=== PATIENT | female | born 1965 | race Caucasian/White ===

== ENCOUNTER 2019-11-10 12:05 | Emergency (ER) | payer OTHER ==
[~2019-11-10] VITALS: Ht 165.1 cm; Wt 65.0 kg
[2019-11-10] MEDS ORDERED: PROCHLORPERAZINE 10 MG/2 ML VIAL. IV ONE (12:45)
[2019-11-10] MEDS ORDERED: IV NORMAL SALINE 1000ML BAG 1,000 ML IV ONE (12:45)
[2019-11-10] MEDS ORDERED: diphenhydrAMINE 50 MG/ML VIAL IVP ONE (12:45)
[2019-11-10] MEDS ORDERED: methylPREDNISolone SOD SUCC PF 125 MG/2 ML VIAL. IV ONE (12:45)
[2019-11-10 12:49] LABS: BILIRUBIN,URINE NEGATIVE (NEG); CLARITY,URINE CLEAR; COLOR,URINE YELLOW; NITRITE,URINE NEGATIVE (NEG); PH,URINE 6.5 (<5.0-8.0); PROTEIN,URINE NEGATIVE (NEG-TRACE); UROBILINOGEN,URINE 0.2 mg/dL (0.2 mg/dL)
[2019-11-10 12:55] LABS: SQUAMOUS EPITHELIAL CELL,UR FEW /LPF
[2019-11-10 12:56] LABS: BACTERIA,URINE 0 /HPF (0-FEW); WBC,URINE 0 /HPF (0-4)
[2019-11-10 12:59] LABS: BARBITURATES NEG (NEG); BENZODIAZEPINES NEG (NEG); CANNABINOIDS NEG (NEG); COCAINE NEG (NEG); METHADONE NEG (NEG); OPIATES NEG (NEG); PHENCYCLIDINE NEG (NEG)
[2019-11-10 13:02] LABS: AMPHETAMINE/METHAMPHETAMINE NEG (NEG)
--- NOTE | 2019-11-10 13:11 | PHYS DOC ---
General Adult EDM: Chief Complaint: HEADACHE HPI: HPI: Patient is a 54 year old female patient who presents to the ED today complaining of 8 out of 10 throbbing posterior headache radiating to the front that began 8 days ago and has been going on intermittently since then. Patient states she was seen by the PCP who thought she had shingles. She states she does not have any rash anywhere. She states she was also given prescription for acyclovir which she is still taking. Patient denies any fever, denies vomiting but reports nausea. Denies any vision changes. Denies this being the worst headache in her life. Review of Systems: Review of Systems: Constitutional: Denies fever or chills. [] Eyes: Denies change in visual acuity. [] HENT: Denies nasal congestion or sore throat. [] Respiratory: Denies cough or shortness of breath. [] Cardiovascular: Denies chest pain or edema. [] GI: Reports nausea. Denies abdominal pain, vomiting, bloody stools or diarrhea. [] : Denies dysuria. [] Musculoskeletal: Denies back pain or joint pain. [] Integument: Denies rash. [] Neurologic: Reports headache, denies focal weakness or sensory changes. [] Psychiatric: Denies depression or anxiety. [] Heart Score: Risk Factors: Risk Factors: DM, Current or recent (<one month) smoker, HTN, HLP, family history of CAD, obesity. Risk Scores: Score 0 - 3: 2.5% MACE over next 6 weeks - Discharge Home Score 4 - 6: 20.3% MACE over next 6 weeks - Admit for Clinical Observation Score 7 - 10: 72.7% MACE over next 6 weeks - Early Invasive Strategies Current Medications: Current Medications Medications (Trade) Dose Ordered Sig/Sylvain Start Time Stop Time Status Last Admin Dose Admin Diphenhydramine HCl (Benadryl) 25 mg 1X ONCE 11/10/19 12:45 11/10/19 12:49 DC Methylprednisolone Sodium Succinate (SOLU-Medrol 125MG VIAL) 125 mg 1X ONCE 11/10/19 12:45 11/10/19 12:49 DC Prochlorperazine Edisylate (Compazine) 10 mg 1X ONCE 11/10/19 12:45 11/10/19 12:49 DC Sodium Chloride 1,000 ml @ 1,000 mls/hr 1X ONCE 11/10/19 12:45 11/10/19 13:44 Allergies: Allergies: Allergies Coded Allergies Type Severity Reaction Last Updated Verified Penicillins Allergy Unknown Rash 11/10/19 Yes Sulfa (Sulfonamide Antibiotics) Allergy Unknown Rash 11/10/19 Yes codeine Allergy Unknown Nausea 11/10/19 Yes Physical Exam: PE: Constitutional: Well developed, well nourished, no acute distress, non-toxic appearance. [] HENT: Normocephalic, atraumatic, bilateral external ears normal, oropharynx moist, no oral exudates, nose normal. [] Eyes: PERRLA, EOMI, conjunctiva normal, no discharge. [] Neck: Normal range of motion, no tenderness, supple, no stridor. [] Cardiovascular:Heart rate regular rhythm, no murmur [] Lungs & Thorax: Bilateral breath sounds clear to auscultation [] Abdomen: Bowel sounds normal, soft, no tenderness, no masses, no pulsatile masses. [] Skin: Warm, dry, no erythema, no rash. [] Back: No tenderness, no CVA tenderness. [] Extremities: No tenderness, no cyanosis, no clubbing, ROM intact, no edema. [] Neurologic: Alert and oriented X 3, normal motor function, normal sensory function, no focal deficits noted. Cranial nerves II through XII intact Psychologic: Flat affect Current Patient Data: Labs: Laboratory Tests Test 11/10/19 12:17 Urine Color Yellow Urine Clarity Clear Urine pH 6.5 (<5.0-8.0) Urine Specific [place] <=1.005 (1.000-1.030) Urine Protein Negative mg/dL (NEG-TRACE) Urine Glucose (UA) Negative mg/dL (NEG) Urine Ketones (Stick) Negative mg/dL (NEG) Urine Blood Trace (NEG) Urine Nitrite Negative (NEG) Urine Bilirubin Negative (NEG) Urine Urobilinogen Dipstick 0.2 mg/dL (0.2 mg/dL) Urine Leukocyte Esterase Negative (NEG) Urine RBC 3-5 /HPF (0-2) Urine WBC 0 /HPF (0-4) Urine Squamous Epithelial Cells Few /LPF Urine Bacteria 0 /HPF (0-FEW) Urine Opiates Screen Neg (NEG) Urine Methadone Screen Neg (NEG) Urine Barbiturates Neg (NEG) Urine Phencyclidine Screen Neg (NEG) Urine Amphetamine/Methamphetamine Neg (NEG) Urine Benzodiazepines Screen Neg (NEG) Urine Cocaine Screen Neg (NEG) Urine Cannabinoids Screen Neg (NEG) Urine Ethyl Alcohol Neg (NEG) EKG: EKG: [] Radiology/Procedures: Radiology/Procedures: []PROCEDURE: CT HEAD WO CONTRAST CT head without contrast dated 11/10/2019. No comparison available. CLINICAL INDICATION: Headache for 8 days. TECHNIQUE: Contiguous axial imaging the head was performed from skull base to vertex. No contrast administered. One or more of the following individualized dose reduction techniques were utilized for this examination: 1. Automated exposure control 2. Adjustment of the mA and/or kV according to patient size 3. Use of iterative reconstruction technique. FINDINGS: Ventricles and sulci are within normal limits for age. No midline shift or mass effect. Brain parenchyma is of normal attenuation. No hemorrhage or extra-axial collection. Posterior fossa and brainstem unremarkable. Visualized paranasal sinuses and mastoid air cells are clear. No apparent calvarial abnormality. IMPRESSION: No evidence of acute intracranial abnormality. Electronically signed by: Aftab Cortez MD (11/10/2019 1:34 PM) [facility] [place] DICTATED and SIGNED BY: AFTAB CORTEZ MD DATE: 11/10/19 1334 Course & Med Decision Making: Course & Med Decision Making Pertinent Labs and Imaging studies reviewed. (See chart for details) This is a 54-year-old female patient presenting to the ED today complaining of a headache intermittently for [address] of the head is negative, labs are negative. Vitals have improved with blood pressure at 110/54 when I evaluated patient before discharge. Patient is in no distress. She states her headache has tremendously improved. She was discharged to home. Follow-up with PCP in the course of this week as well as a neurologist. Ashtyn Disclaimer: Ashtyn Disclaimer: This electronic medical record was generated, in whole or in part, using a voice recognition dictation system. Departure Departure Impression: Primary Impression: Headache Qualified Codes: R51 - Headache Disposition: 01 HOME, SELF-CARE Condition: STABLE Referrals: HEATHER GUEVARA MD Follow-up in the course of this week Patient Instructions: Headache, FAQs Additional Instructions: You were evaluated in the emergency room for a headache. We recommend you follow-up with your primary care doctor as well as a neurologist in the course of this week. Come back to the ED at any point symptoms worsen. Justicifation of Admission Dx: Justifications for Admission: Justification of Admission Dx: N/A LUIS M MACKAY APRN Nov 10, 2019 13:11
[2019-11-10 13:14] LABS: BASO # 0.1 x10^3/uL (0.0-0.2); BASO % 1 % (0-3); EOS # 0.1 x10^3/uL (0.0-0.7); EOS % 1 % (0-3); HEMATOCRIT 37.6 % (36.0-47.0); HEMOGLOBIN 13.1 g/dL (12.0-15.5); LYMPH # 1.5 x10^3/uL (1.0-4.8); LYMPH % 15 % (24-48); MEAN CORPUSCULAR HEMOGLOBIN 33 pg (25-35); MEAN CORPUSCULAR HGB CONC 35 g/dL (31-37); MEAN CORPUSCULAR VOLUME 94 fL (79-100); MONO # 0.6 x10^3/uL (0.0-1.1); MONO % 6 % (0-9); NEUT # 7.7 x10^3/uL (1.8-7.7); NEUT % 76 % (31-73); PLATELET COUNT 319 x10^3/uL (140-400); RED CELL DISTRIBUTION WIDTH 13.4 % (11.5-14.5); WHITE BLOOD COUNT 10.1 x10^3/uL (4.0-11.0)
[2019-11-10 13:24] LABS: CALCIUM 9.1 mg/dL (8.5-10.1); GFR 57.8; POTASSIUM 3.7 mmol/L (3.5-5.1)
[2019-11-10 13:26] LABS: PROTHROMBIN TIME PATIENT 12.2 SEC (11.7-14.0)
[2019-11-10 13:31] LABS: ALBUMIN 4.3 g/dL (3.4-5.0); ALBUMIN/GLOBULIN RATIO 1.4 (1.0-1.7); MAGNESIUM 2.1 mg/dL (1.8-2.4); TOTAL BILIRUBIN 0.5 mg/dL (0.2-1.0); TOTAL PROTEIN 7.4 g/dL (6.4-8.2)
--- NOTE | 2019-11-10 13:37 | RAD ---
CT head without contrast dated 11/10/2019. No comparison available. CLINICAL INDICATION: Headache for 8 days. TECHNIQUE: Contiguous axial imaging the head was performed from skull base to vertex. No contrast administered. One or more of the following individualized dose reduction techniques were utilized for this examination: 1. Automated exposure control 2. Adjustment of the mA and/or kV according to patient size 3. Use of iterative reconstruction technique. FINDINGS: Ventricles and sulci are within normal limits for age. No midline shift or mass effect. Brain parenchyma is of normal attenuation. No hemorrhage or extra-axial collection. Posterior fossa and brainstem unremarkable. Visualized paranasal sinuses and mastoid air cells are clear. No apparent calvarial abnormality. IMPRESSION: No evidence of acute intracranial abnormality. Electronically signed by: Aftab Cortez MD (11/10/2019 1:34 PM) MARY
[2019-11-10] MEDS ORDERED: MORPHINE SULFATE 10 MG/ML VIAL. IV ONE (14:00)
[2019-11-10] MEDS ORDERED: ONDANSETRON PF 4 MG/2 ML VIAL. IVP ONE (14:00)
[2019-11-10 15:03] VITALS: BP 106/55
--- NOTE | 2019-11-12 04:18 | EKG ---
[facility] [address] [place] [address] Test Date: 2019-11-10 Test Time: 13:49:24 Pat Name: EVONNE PAUL Department: Room: Gender: F [employer]: : 1965 Requested By: LUIS M MACKAY Order Number: [id number] Reading MD: Measurements Intervals [place] Rate: 76 P: 42 MO: 138 QRS: 48 QRSD: 86 T: 51 QT: 410 QTc: 466 Interpretive Statements SINUS RHYTHM NORMAL ECG RI6.02 No previous ECG available for comparison
== END 2019-11-10 15:31 | disposition home or self-care (01) ==
LOC: ER 12:05
DX: R51 Headache (principal); R11.0 Nausea; Z88.0 Allergy status to penicillin; Z88.2 Allergy status to sulfonamides; Z88.5 Allergy status to narcotic agent
CPT/HCPCS: 36415; 70450; 80053; 80307; 81001; 83735; 83880; 84443; 84484; 85025; 85610; 96361; 96374; 96375; 99285; J0780; J1200; J2270; J2405; J2930; J7030; 93005